=== PATIENT | male | born 1940 | race Caucasian/White ===

== ENCOUNTER 2016-08-10 05:47 | Day surgery (SDC) | payer BC ==
[~2016-08-10] VITALS: Ht 170.2 cm; Wt 67.5 kg
[~2016-08-10 05:47] MED LIST: ATROPINE 1100 DROP/5 RIGHT EYE; CENTRUM SILVER1 EAC3 PO; COSOPT EYE DROPS5 ML RIGHT EYE; METOPROLOL TART25 MG PO; NEVANAC 0.60 DROP/3 RIGHT EYE; PLAVIX75 MG PO; PREDNISOLONE AC15 ML RIGHT EYE; PSORIASIS CREAM; ST. JOSEPH ASPI81 MG PO; TRIAMCINOLONE A15 G1 TP
[2016-08-10 06:57] VITALS: BP 169/93
[2016-08-10 09:55] VITALS: BP 156/84
[2016-08-10 10:30] VITALS: BP 131/87
== END 2016-08-10 10:40 | disposition home or self-care (01) ==
LOC: SDC 05:47
PROC: 08B43ZZ Excision of Right Vitreous, Percutaneous Approach (ICD-10-PCS; principal; 2016-08-10)
PROC: 08CE3ZZ Extirpation of Matter from Right Retina, Percutaneous Approach (ICD-10-PCS; principal; 2016-08-10)
DX: H35.371 Puckering of macula, right eye (principal); H35.81 Retinal edema; I10 Essential (primary) hypertension; E78.5 Hyperlipidemia, unspecified; I47.1 Supraventricular tachycardia
CPT/HCPCS: J0690; J0713; J1100; J2405; J3010; J3300